=== PATIENT | female | born 1965 | race African-American/Black ===

== ENCOUNTER 2017-08-21 06:30 | Day surgery (SDC) | payer BC ==
[2017-08-18 16:30] VITALS: BMI 35.4
--- NOTE | 2017-08-20 21:47 | HP ---
Past Medical History - Admission Chief Complaint: Postmenopausal bleeding History of Present Illness: 52 year old seen on 07/14/17 complaining of 2 week history of dark vaginal staining. Spontaneous onset, denies cramping or abdominal pain. Had similar occurrence in September of 2015 where ultrasound revealed endometrium of 4mm. Endometrial biopsy was performed demonstating inactive tissue.Pelvc ultrasound performed 07/14/17 demonstrated retroverted uterus with a thickened endometrium of .6cm. There was also present a fibroid as well as suggestion of left adnexal mass, possible dermoid. Subsequent MRI of pelvis performed confirming fibroid rather than left adnexal mass. Negative pap smear and HPV August 2016. History Source: Patient Limitations to Obtaining History: No Limitations - Past Medical History ...: 3 ...Para: 3 - Past Surgical History Hx Myomectomy: No Hx Transabdominal Cerclage: No Additional Surgical History: Laparoscopy Tubal Cautery - 22 years ago with uterine perforation. Dilation and Curettage with hysteroscopy - 08/08/2013 - Smooth muscle, irregular bleeding. LEEP - 04/05/1999 - [facility]. Endometrial biopsy 09/25/2015 Inactive endometrium. Back [facility] [address] 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 [employer] History of Recent Travel: No Home Medications - Allergies Allergies/Adverse Reactions: Allergies Allergy/AdvReac Type Severity Reaction Status Date / Time No Known Drug Allergies Allergy Verified 08/18/17 16:30 - Home Medications Home Medications: Ambulatory Orders Naproxen Sodium [Aleve] 220 mg PO PRN PRN 08/18/17 Family Disease History - Family Disease History Family Disease History: Diabetes: Mother Review of Systems - Review of Systems Constitutional: reports: No Symptoms Cardiovascular: reports: No Symptoms Respiratory: reports: No Symptoms Gastrointestinal: reports: No Symptoms Genitourinary: reports: No Symptoms Breasts: reports: No Symptoms Reported (Negative mammogram 08/22) Neurological: reports: No Symptoms Psychiatric: reports: No Symptoms Physical Exam-[facility]IC[facility] Constitutional: Yes: Well Nourished, No Distress HENT: Yes: WNL Neck: Yes: WNL, Supple, Trachea Midline Cardiovascular: Yes: WNL, Regular Rate and Rhythm Respiratory: Yes: WNL, Regular, CTA Bilaterally Gastrointestinal: Yes: WNL, Soft ...Rectal Exam: Yes: WNL Pelvis: Yes: WNL External Genitalia: Yes: Normal Internal Exam Deferred: No Vaginal Exam: Yes: Normal Cervix: Yes: Normal, Eversion Uterus: Yes: Freely Moveable, Retroverted Adnexa: Normal: Bilateral Extremities: Yes: WNL Edema: No Psychiatric: Yes: WNL, Alert, Oriented Imaging - Results Ultrasound: Report Reviewed (Retroverted uterus with endometrium measuring 6 mm) Assessment/Plan Postmenopausal bleeding Plan: D and C with Hysteroscopy.
[2017-08-21] MEDS ORDERED: PROPOFOL 20 ML ONE (07:47)
[2017-08-21] MEDS ORDERED: LIDOCAINE HCL/PF 2% SDV 5ML VIAL ONE (07:47)
[2017-08-21] MEDS ORDERED: MIDAZOLAM HCL 2 MG/2 ML SINGLE DOSE VIAL ONE (07:47)
--- NOTE | 2017-08-21 08:01 | HP ---
History & Physical Update - Assessment Currently as noted:: EXplained review of MRI again confirming no left adnexal mass, rather fibro
[2017-08-21] MEDS ORDERED: DEXAMETHASONE SOD PHOSPHATE 4 MG/1 ML VIAL ONE (08:16)
[2017-08-21] MEDS ORDERED: IBUPROFEN 800 MG/8 ML IJ IVPB PRN (08:41)
[2017-08-21] MEDS ORDERED: ONDANSETRON 4 MG/2 ML VIAL IVPUSH PRN (08:41)
[2017-08-21] MEDS ORDERED: ACETAMINOPHEN 325 MG TABLET (FP) PO PRN (08:42)
[2017-08-21] MEDS ORDERED: IBUPROFEN 400 MG TABLET (FP) PO PRN (08:42)
[2017-08-21] MEDS ORDERED: LACTATED RINGERS SOLUTION 1,000 ML IV SCH (08:45)
[2017-08-21] MEDS ORDERED: IBUPROFEN 800 MG/8 ML IJ IVPB ONE (09:00)
[2017-08-21 11:22] VITALS: BP 145/77; PULSE 81
[2017-08-21 12:28] VITALS: TEMP 98.2
--- NOTE | 2017-08-22 10:35 | OP ---
DATE OF OPERATION: 08/21/2017 PREOPERATIVE DIAGNOSIS: Postmenopausal bleeding, fibroid uterus. POSTOPERATIVE DIAGNOSIS: Postmenopausal bleeding, fibroid uterus. OPERATION: Dilation and curettage, hysteroscopy. SURGEON: John Wellington MD ANESTHESIA: General, Dr. Dunlap ESTIMATED BLOOD LOSS: 10 mL. SPECIMENS: Endometrial curettings. DESCRIPTION OF PROCEDURE: Under general anesthesia, the patient was placed in the dorsal lithotomy position and prepped and draped in the usual sterile manner. Pelvic examination was performed revealing uterus that was retroverted. Weighted speculum was inserted in the vagina. Anterior lip of the cervix was grasped with a sharp tooth tenaculum. Uterus sounded to approximately 8 cm posteriorly. The cervical os was dilated. With the use of saline as the distending medium, a 5-mm hysteroscope was then inserted into the uterine cavity. The uterine cavity was noted to be sharply retroverted. Both ostia were visualized. There was present at the posterior portion of the uterus a small polypoid-type structure. No submucosal fibers were identified. The uterine cavity was then curetted. Polypoid tissue was obtained. The hysteroscope was then inserted into the uterine cavity. No remaining tissue was identified. The patient was brought to recovery in satisfactory condition. Aparna [id number]
--- NOTE | 2017-08-24 11:44 | PATH ---
Surgical Pathology Report Patient Name: GISELE ABRAMS [facility]. Rec. #: [id number] /Age/Gender: 1965 (Age: 52) / F Account: [id number] Location: [facility] SURGICAL Taken: 08/21/2017 Received: 08/21/2017 Reported: 08/24/2017 Physicians: John Wellington M.D. 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 NO ENDOMETRIAL HYPERPLASIA OR CARCINOMA IDENTIFIED. Electronically Signed Power Thomas M.D. Gross Description Received in formalin labeled "endometrial curettings and polyp," is a 2.3 x 2.1 x 0.3 cm aggregate of red-brown soft tissue fragments. The formalin is filtered and the specimen is entirely submitted in one cassette. /08/21/2017 [facility]08/21/2017
== END 2017-08-21 11:25 | disposition home or self-care (01) ==
LOC: JASU-SURG 06:30
PROVIDERS: ATTEND Obstetrics & Gynecology
PROC: 0UDB7ZX Extraction of Endometrium, Via Natural or Artificial Opening, Diagnostic (ICD-10-PCS; principal; 2017-08-21 08:00)
PROC: 0UJD8ZZ Inspection of Uterus and Cervix, Via Natural or Artificial Opening Endoscopic (ICD-10-PCS; 2017-08-21 08:00)
DX: D25.9 Leiomyoma of uterus, unspecified (principal); N95.0 Postmenopausal bleeding
CPT/HCPCS: 88305-TC; 94760

== ENCOUNTER 2022-01-13 04:39 | Day surgery (SDC) | payer BC ==
[2022-01-09 12:16] VITALS: BMI 41.9
[2022-01-13] MEDS ORDERED: ONDANSETRON 4 MG/2 ML VIAL ONE ×2 (12:44→15:41)
[2022-01-13] MEDS ORDERED: DEXAMETHASONE SOD PHOSPHATE 4 MG/1 ML VIAL ONE (12:44)
[2022-01-13] MEDS ORDERED: LIDOCAINE HCL/PF 2% SDV 5ML VIAL ONE (12:44)
[2022-01-13] MEDS ORDERED: KETOROLAC TROMETHAMINE 30 MG/1 ML VIAL ONE (12:44)
[2022-01-13] MEDS ORDERED: MIDAZOLAM HCL 2 MG/2 ML SINGLE DOSE VIAL ONE (12:45)
[2022-01-13] MEDS ORDERED: PROPOFOL 20 ML ONE (12:45)
[2022-01-13] MEDS ORDERED: SUCCINYLCHOLINE CHLORIDE 200 MG/10 ML SYRINGE ONE ×2 (12:58→13:36)
[2022-01-13] MEDS ORDERED: ceFAZolin SODIUM 1 GM VIAL IVPB ONE (13:10)
[2022-01-13] MEDS ORDERED: ONDANSETRON 4 MG/2 ML VIAL IVPUSH PRN (14:48)
[2022-01-13] MEDS ORDERED: oxyCODONE HCL 5 MG TABLET PO PRN (14:48)
[2022-01-13] MEDS ORDERED: LACTATED RINGERS SOLUTION 1,000 ML IV SCH (15:00)
[2022-01-13] MEDS ORDERED: ONDANSETRON 4 MG/2 ML VIAL IVPUSH ONE (15:47)
[2022-01-13 15:50] VITALS: TEMP 96.9
[2022-01-13 19:45] VITALS: BP 130/67; PULSE 70
== END 2022-01-13 18:40 | disposition home or self-care (01) ==
LOC: JASU-SURG 04:39
PROVIDERS: ATTEND Obstetrics & Gynecology
PROC: 0UDB7ZX Extraction of Endometrium, Via Natural or Artificial Opening, Diagnostic (ICD-10-PCS; 2022-01-13)
PROC: 0UB98ZX Excision of Uterus, Via Natural or Artificial Opening Endoscopic, Diagnostic (ICD-10-PCS; principal; 2022-01-13 11:30)
DX: N95.0 Postmenopausal bleeding (principal); E66.01 Morbid (severe) obesity due to excess calories; N84.0 Polyp of corpus uteri
CPT/HCPCS: 76998-TC; 88305-TC; 94760